=== PATIENT | female | born 1940 | race Caucasian/White ===

== ENCOUNTER → 2016-10-20 | Outpatient (CLI) | payer MEDICARE, OTHER ==
--- NOTE | 2016-10-27 16:26 | RADIOLOGY REPORT PS360 ---
DIG MAMM-SCREEN ANDRY W/CAD CAD Screening ORDERING PHYSICIAN : LUCIUS JACOB PATIENT AGE: 76 years GENDER: Female COMPARISON: Previous mammograms: ... June 2015. February 2014, June 2010 INDICATION: Routine screening June TECHNIQUE: Standard CC and MLO images were obtained. R2 CAD reviewed. FINDINGS: Moderate breast density with no significant new findings when compared to previous study. Moderately dense breasts to slightly decreases sensitivity mammography but the overall pattern seen to be similar to prior studies with no new areas of significant concern. Bilateral follow-up in one year adequate. Left breast. No new or suspicious findings. Some small groupings of Very faint punctate t calcifications at the deep lateral left breast are noted & similar to studies dating back to 2013 and can be followed safely. Right breast. No new findings. Again there are some faint calcifications with recently stable at the lateral breast and can be followed. IMPRESSION: ...... Stable bilateral mammogram. . Stable features bilaterally, with no new areas of concern BI-RADS CATEGORY: 2_Benign RECOMMENDED FOLLOWUP: 12M 12 MONTH FOLLOW-UP (A letter has been sent to the patient regarding results of the study.)
== END ==
LOC: RAD 10:00
DX: Z12.31 Encounter for screening mammogram for malignant neoplasm of breast (principal)
CPT/HCPCS: G0202

== ENCOUNTER 2016-12-30 13:05 | Observation (INO) | payer MEDICARE, OTHER ==
[~2016-12-30] VITALS: Ht 154.9 cm; Wt 67.1 kg
[2016-12-30 14:48] VITALS: BP 129/67
[2016-12-30 14:50] VITALS: BP 129/67
[2016-12-30] MEDS ORDERED: GABAPENTIN100 MG PO (16:03)
[2016-12-30] MEDS ORDERED: METFORMIN 500M500 M1 PO (16:04)
[2016-12-30] MEDS ORDERED: ESTRADIOL1 M1 PO (16:06)
[2016-12-30] MEDS ORDERED: ALLOPURINOL100 MG PO (16:07)
[2016-12-30] MEDS ORDERED: CRESTOR20 MG PO (16:09)
[2016-12-30] MEDS ORDERED: MIRALAX(PO17 GM/1 PA PO (16:11)
[2016-12-30] MEDS ORDERED: ZEBETA5 MG PO (16:12)
[2016-12-30] MEDS ORDERED: ZESTORETIC 20-1 EACH PO (16:13)
[2016-12-30] MEDS ORDERED: FERROUS SULFAT325 M2 PO (16:14)
--- NOTE | 2016-12-30 17:22 | RADIOLOGY REPORT PS360 ---
CHEST(2 VIEWS-NOT PORTABLE) Ordering physician: Cleo Espinoza MD Age: 76 years Female INDICATION: chest symptomsdehydration dehydration vomiting diarrhea PROCEDURE: CHEST(2 VIEWS-NOT PORTABLE) COMPARISONNo prior chest film available but there is a CT of abdomen and pelvis which partially images the lower chest used as comparison FINDINGS: Lungs well expanded andclear with nothing definitely acute. No pneumothorax. No pleural effusion. Heart normal size. Normal pulmonary vascularity. Hilar and mediastinal structures appear satisfactory. . . The very large marginal osteophyte arising anteriorly & to the right most notable lower T-spine T9-10. This feature is nicely seen on prior CT accounts for dense focus seen here on lateral view at this level. Degenerative changes seen at the levels of the T-spine. Previous right rotator cuff tear repair IMPRESSION ----- Lung is clear nothing definitely acute. Degenerative changes T-spine. Noting exuberant marginal osteophytes particularly at T9-10
[2016-12-30 19:40] VITALS: BP 149/71
[2016-12-31 01:54] LABS: URINE BILIRUBIN - DIPSTICK NEGATIVE (NEG); URINE BLOOD 2+ (NEG)
[2016-12-31 04:15] VITALS: BP 142/58
--- NOTE | 2016-12-31 07:37 | PHARMACY CLINIC NOTE ---
Patient Demographics Patient Demographics Admission date: 12/30/16 Date: 12/31/16 Time: 0736 Allergies Coded Allergies: sulfasalazine (From SULFAZINE) (12/30/16) HEIGHT- FT: 5 IN: 1.00 K.132 VTE General Information Disclaimer The following section includes nursing documentation that has been pulled in for pharmacy review. Patient's VTE score: 3 Patient's VTE Risk: LOW RISK Clinical trial participant? No VTE prophylaxis [id number] VTE prophylaxis ordered? Yes Type of prophylaxis/treatment: VICTOR MANUEL at 0736
[2016-12-31 07:59] VITALS: BP 142/58
[2016-12-31 08:05] VITALS: BP 139/54
--- NOTE | 2016-12-31 09:35 | ACUTE CARE PROGRESS NOTE (QUA) ---
See Addendum Progress Notes Subjective Date 12/31/16 Time 0800 Note Pt resting quietly in bed with at bedside. She is feeling much better today, however, she is tired from not sleeping well overnight. She denies any pain. She tolerated breakfast without any nausea. She reports that she has voided numerous times overnight since IVF started, denies any dysuria or hematuria. Objective Findings Laboratory Tests 12/31/16 0000: Urine Color YELLOW, Urine Appearance CLEAR, Urine pH 5.5, Ur Specific [place] 1.025, Urine Protein NEGATIVE, Urine Ketones NEGATIVE, Urine Blood 2+ H, Urine Nitrate NEGATIVE, Urine Bilirubin NEGATIVE, Urine Urobilinogen 0.2, Ur Leukocyte Esterase NEGATIVE, Urine RBC 5-10, Urine WBC 3-5, Ur Squamous Epith Cells 3-5, Urine Bacteria 1+, Urine Mucus 1+, Urine Glucose NEGATIVE 12/30/16 1458: TSH 1.12 12/30/16 1458: Sodium 135 L, Potassium 3.7, Chloride 100, Carbon Dioxide 25, BUN 20 H, Creatinine 1.0, Estimated Creat Clear 52, Estimated GFR (MDRD) 54 L, Glucose 125 H, Calcium 8.8, Total Bilirubin 0.5, AST 15, ALT 22, Alkaline Phosphatase 93, Total Protein 7.8, Albumin 4.1, Globulin 3.7 H, Albumin/Globulin Ratio 1.1 12/30/16 1400: Amylase 63, Lipase 106 Microbiology 12/31 0000 RANDOM: Urine Culture - RECD Vital Signs Date Time Temp Pulse Resp B/P Pulse O2 O2 Flow FiO2 Ox Delivery Rate 12/31 0805 97.9 72 16 139/54 98 ROOM AIR 12/31 0759 98.2 70 18 142/58 96 12/31 0415 98.2 70 18 142/58 96 ROOM AIR 12/30 2204 98.7 91 22 117/49 97 12/31 2007 98.7 91 22 117/49 97 12/30 1940 99.3 78 20 149/71 97 ROOM AIR 12/30 1450 78 12/30 1450 98.0 78 18 129/67 12/30 1450 98 ROOM AIR 12/30 1448 98.0 78 18 129/67 98 ROOM AIR Last VS-Temp:97.9 B/P:139/54 Pulse:72 Resp:16 SaO2:98 ROOM AIR Last weight lbs:148 oz:0 K.132 Method:Floor Scales 12/30/16 CXR: 1. Lung is clear nothing definitely acute. 2. Degenerative changes T-spine. Noting exuberant marginal osteophytes particularly at T9-10. Exam General appearance: alert, awake, no acute distress Cardiovascular: regular rate & rhythm, normal peripheral pulses Respiratory: CTAB A&P ABD: non-distended, no rebound, soft, no tenderness, no guarding, no organomegaly, no palpable mass, bowel sounds present Extremities: moves all, no peripheral edema, warm, no calf tenderness Neuro: alert, oriented, speech clear, no focal deficit Reviewed: medications, vital signs, lab results, radiology report, nursing notes Assessment/Plan Problem List 1. Dehydration Status: Acute 2. Acute cystitis Status: Acute Patient condition Improving Plan: Urine culture pending. Will continue current care. Will discuss restarting home dose of metformin and continuation of Levaquin with Dr. Espinoza. This inpt stay is expected to cross 2 MNs from start of care Yes at 0935 at 1101
--- NOTE | 2016-12-31 12:37 | RADIOLOGY REPORT PS360 ---
US [id number] HISTORY: Hx right flank pain, admitted with pain and WBC elevated ORDERING PHYSICIAN: Cleo Espinoza MD PATIENT AGE: 76 years COMPARISON: None FINDINGS: RIGHT KIDNEY:Unremarkable. Normal size and echogenicity. No hydronephrosis. 9 x 4 x 6 cm LEFT KIDNEY:Unremarkable. No hydronephrosis. Normal size and echogenicity.. 10 x 4 x 4 cm OTHER FINDINGS: No other pertinent findings IMPRESSION: Negative bilateral renal ultrasound
[2016-12-31 15:41] VITALS: BP 149/61
[2016-12-31 17:53] LABS: HEMOGLOBIN 11.1 g/dL (12.2-16.2); LYMPH % 22.9 % (10-50.0)
[2016-12-31 18:41] LABS: URINE BILIRUBIN - DIPSTICK NEGATIVE (NEG); URINE BLOOD 1+ (NEG)
[2016-12-31 19:32] VITALS: BP 147/69
--- NOTE | 2016-12-31 19:46 | ACUTE CARE PROGRESS NOTE (QUA) ---
Progress Notes Subjective Date 12/31/16 Time 1941 Note She feels well this evening. She is not having pain. The renal ultrasound was normal. Her repeat urinalysis today shows only 1+ blood and normal otherwise. She has a history of showing some hematuria. She will be discharged with the diagnoses of gastroenteritis, dehydration, and hematuria. There will be further outpatient workup regarding the hematuria. She will continue on Levaquin 750 mg daily for 3 more days, totaling 5 days. Objective Findings Laboratory Tests 12/31/16 1830: Urine Color YELLOW, Urine Appearance CLEAR, Urine pH 6.0, Ur Specific [place] <= 1.005, Urine Protein NEGATIVE, Urine Ketones NEGATIVE, Urine Blood 1+ H, Urine Nitrate NEGATIVE, Urine Bilirubin NEGATIVE, Urine Urobilinogen 0.2, Ur Leukocyte Esterase NEGATIVE, Urine RBC OCC, Urine WBC NONE, Ur Squamous Epith Cells 3-5, Urine Bacteria NONE, Urine Glucose NEGATIVE 12/31/16 1740: WBC 4.3 L, RBC 3.71 L, Hgb 11.1 L, Hct 32.0 L, MCV 86.2, RDW 13.5, Plt Count 219, MPV 7.2 L, Gran % 67.8, Gran # 2.9, Lymphocytes % 22.9, Monocytes % 6.1, Eosinophils % 3.0, Basophils % 0.2, Lymphocytes # 1.0, Monocytes # 0.3, Eosinophils # 0.1, Basophils # 0.0, PUBS MCHC 34.8, MCH 30.0 12/31/16 0000: Urine Color YELLOW, Urine Appearance CLEAR, Urine pH 5.5, Ur Specific [place] 1.025, Urine Protein NEGATIVE, Urine Ketones NEGATIVE, Urine Blood 2+ H, Urine Nitrate NEGATIVE, Urine Bilirubin NEGATIVE, Urine Urobilinogen 0.2, Ur Leukocyte Esterase NEGATIVE, Urine RBC 5-10, Urine WBC 3-5, Ur Squamous Epith Cells 3-5, Urine Bacteria 1+, Urine Mucus 1+, Urine Glucose NEGATIVE Microbiology 12/31 0000 RANDOM: Urine Culture - RECD Last VS-Temp:98.3 B/P:147/69 Pulse:72 Resp:20 SaO2:99 ROOM AIR Last weight lbs:148 oz:0 K.132 Method:Floor Scales Exam General appearance: no acute distress Eyes: anicteric ABD: soft, no tenderness (minimal, nonspecific), no guarding, no organomegaly Genitourinary: normal voiding & quantity Assessment/Plan Problem List 1. Dehydration Status: Acute 2. Acute cystitis Status: Acute Patient condition Improving Plan: initiate discharge plan This inpt stay is expected to cross 2 MNs from start of care Yes at 1941
--- NOTE | 2016-12-31 19:48 | ACUTE CARE PROGRESS NOTE (QUA) ---
Progress Notes Subjective Date 12/31/16 Time 1945 Assessment/Plan Problem List 1. Dehydration Status: Acute 2. Gastroenteritis 3. Hematuria This inpt stay is expected to cross 2 MNs from start of care Yes at 1947
[2016-12-31] MEDS ORDERED: LEVAQUIN750 MG PO (19:51)
[2016-12-31 20:07] VITALS: BP 147/69
== END 2016-12-31 20:42 | disposition home or self-care (01) ==
LOC: 2ND 13:05
PROVIDERS: Family Medicine
DX: E86.0 Dehydration (principal); K52.9 Noninfective gastroenteritis and colitis, unspecified; N30.01 Acute cystitis with hematuria
CPT/HCPCS: G0378

== ENCOUNTER → 2017-03-10 | Outpatient (CLI) | payer MEDICARE, OTHER ==
[~2017-03-10] MED LIST: ALLOPURINOL100 MG PO; CRESTOR20 MG PO; ESTRADIOL1 M1 PO; FERROUS SULFAT325 M2 PO; GABAPENTIN100 MG PO; LEVAQUIN750 MG PO; METFORMIN 500M500 M1 PO; MIRALAX(PO17 GM/1 PA PO; ZEBETA5 MG PO; ZESTORETIC 20-1 EACH PO
--- NOTE | 2017-03-10 13:45 | RADIOLOGY REPORT PS360 ---
EXAM: THORACIC SPINE-3V SWIMMERS HISTORY: BACK PAIN WITH RADIULOPATHY RT SIDE COMPARISON: Chest x-ray of 12/30/2016 FINDINGS: There is mild mid thoracic scoliosis convex right. Multilevel degenerative disc disease is present within the plate osteophytes more prominent from T7 to T10. No acute fracture or dislocation evident. No lytic or blastic change. 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 No acute fracture
== END ==
LOC: RAD 13:07
DX: M54.10 Radiculopathy, site unspecified (principal); M54.6 Pain in thoracic spine